=== PATIENT | male | born 1995 | race African-American/Black ===

== ENCOUNTER 2019-04-07 20:44 | Emergency (ER) | payer OTHER ==
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
[2019-04-07] MEDS ORDERED: OXYCODONE-ACETAMINOPHEN 5-325 MG TABLET PO ONE (23:02)
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
[2019-04-08 05:49] VITALS: BP 132/72
== END 2019-04-07 23:40 | disposition home or self-care (01) ==
LOC: ER 20:44
DX: S43.005A Unspecified dislocation of left shoulder joint, initial encounter (principal); M25.512 Pain in left shoulder; R03.0 Elevated blood-pressure reading, without diagnosis of hypertension; V28.4XXA Motorcycle driver injured in noncollision transport accident in traffic accident, initial encounter; F17.200 Nicotine dependence, unspecified, uncomplicated; J45.909 Unspecified asthma, uncomplicated
CPT/HCPCS: 99283; 73030; L3650

== ENCOUNTER 2020-06-08 21:55 | Emergency (ER) | payer OTHER ==
[2020-06-08 22:49] VITALS: BP 131/72
== END 2020-06-09 00:05 | disposition left against medical advice (07) ==
LOC: ER 21:55
DX: Z53.21 Procedure and treatment not carried out due to patient leaving prior to being seen by health care provider (principal)